=== PATIENT | male | born 1990 | race Caucasian/White ===

== ENCOUNTER 2017-07-19 11:50 | Day surgery (SDC) | payer OTHER ==
[2017-07-19] VITALS (9 sets, daily range): BP systolic 118–132; BP diastolic 59–91; PULSE 81–96; TEMP 97.4–98.8
[~2017-07-19] VITALS: Ht 180.3 cm; Wt 96.1 kg
[~2017-07-19 11:50] MED LIST: BENADRYL25 M2 PO; DOXYCYCLINE 10100 MG PO; NEXIUM 20MG20 MG PO; PREDNISONE1 MG PO; VIT D; ZANTAC 150150 MG
[2017-07-19] MEDS ORDERED: MELAT3MGTAB PO (13:11)
[2017-07-19] MEDS ORDERED: ULTRAM 50MG TAB50 MG PO (13:15)
[2017-07-19] MEDS ORDERED: ZYRTEC5 MG PO (13:15)
[2017-07-19] MEDS ORDERED: SINGULAIR4 MG/PACKE PO (13:16)
[2017-07-19] MEDS ORDERED: ADVIL200 MG PO (13:17)
[2017-07-19] MEDS ORDERED: NYQUIL GENERIC PO (13:18)
== END 2017-07-19 23:58 | disposition home or self-care (01) ==
LOC: SDCO 11:50 → SURG 18:20 → SDCO 23:58
DX: K40.90 Unilateral inguinal hernia, without obstruction or gangrene, not specified as recurrent (principal); K21.9 Gastro-esophageal reflux disease without esophagitis
CPT/HCPCS: OP; A4314; C1781; J1100; J1170; J1885; J2405; J2704; J2710; J3010; J7120